=== PATIENT | male | born 1955 | race Caucasian/White ===

== ENCOUNTER → 2022-01-16 15:36 | Outpatient (BNVA) | payer MEDICARE, SELFPAY | PROVIDERS: Visit Provider Podiatrist Foot & Ankle Surgery | DX: M79.671 Pain in right foot (principal); M79.672 Pain in left foot; M21.42 Flat foot [pes planus] (acquired), left foot; M21.41 Flat foot [pes planus] (acquired), right foot | CPT/HCPCS: 73630 ==

== ENCOUNTER → 2022-11-27 10:06 | Outpatient (BNVA) | payer MEDICARE, SELFPAY | PROVIDERS: Visit Provider Podiatrist Foot & Ankle Surgery | DX: E11.21 Type 2 diabetes mellitus with diabetic nephropathy (principal); L84 Corns and callosities; M21.42 Flat foot [pes planus] (acquired), left foot; M21.41 Flat foot [pes planus] (acquired), right foot; M20.21 Hallux rigidus, right foot; M20.22 Hallux rigidus, left foot; Z79.84 Long term (current) use of oral hypoglycemic drugs | CPT/HCPCS: 99214 ==

== ENCOUNTER → 2024-01-28 08:47 | Outpatient (BNVA) | payer MEDICARE, SELFPAY | PROVIDERS: Visit Provider Podiatrist Foot & Ankle Surgery | DX: E11.21 Type 2 diabetes mellitus with diabetic nephropathy; M21.41 Flat foot [pes planus] (acquired), right foot; M21.42 Flat foot [pes planus] (acquired), left foot; M20.21 Hallux rigidus, right foot; M20.22 Hallux rigidus, left foot; Z79.84 Long term (current) use of oral hypoglycemic drugs | CPT/HCPCS: 99213 ==

== ENCOUNTER 2024-02-19 14:45 | Emergency (ER) | payer MEDICARE, SELFPAY ==
[2024-02-19 14:54] VITALS: BP 169/82; PULSE 95; RESP 18; TEMP 36.6; O2SAT 96; BMI 30.2
[2024-02-19 15:28] LABS: Basophils # 0.1 10^3/uL (0.0-0.1); Eosinophils # 0.2 10^3/uL (0.0-0.8); Eosinophils % 3.1 %; Hematocrit 44.3 % (37-53); Lymphocytes # 1.2 10^3/uL (0.8-4.8); Lymphocytes % 16.9 %; Mean Corpuscular HGB Conc 35.2 g/dL (30-55); Mean Corpuscular Hemoglobin 33.3 pg (27-33); Mean Corpuscular Volume 94.5 fl (82-101); Monocytes # 0.6 10^3/uL (0.2-0.9); Monocytes % 9.2 %; Neutrophils # 4.74 10^3/uL (1.8-7.7); Neutrophils % 68.8 %; Nucleated Red Blood Cells % 0 %; Platelet Count 265 10^3/cmm (157-399); Red Blood Count 4.69 10^6/uL (3.85-5.65); Red Cell Distribution Width 11.7 % (12.1-15.1); White Blood Count 6.88 10^3/uL (3.29-11.43)
--- NOTE | 2024-02-19 15:41 | ECG_ITS ---
[facility] Test Date: 2024-02-19 Pat Name: Oscar Ruiz Department: Room: Gender: Male Instructional Paraprofessional: : 1955 Requested By: Mikael Fletcher Order Number: [id number] Smith MD: Florencio Cuevas M.D. Measurements Intervals [place] Rate: 87 P: 78 MA: 204 QRS: -14 QRSD: 90 T: 119 QT: 346 QTc: 417 Interpretive Statements SINUS RHYTHM POSSIBLE LEFT ATRIAL ENLARGEMENT [-0.1mV P-WAVE IN V1/V2] POSSIBLE RIGHT VENTRICULAR CONDUCTION DELAY [RSR (QR) IN V1/V2] NONSPECIFIC T-WAVE ABNORMALITY No previous ECG available for comparison Electronically Signed On 02-19-2024 22:11:47 CDT by Florencio Cuevas M.D. [id number]
--- NOTE | 2024-02-19 15:46 | W.ED.GENADLT ---
HPI - General Adult General: Chief complaint: General Medical Stated complaint: Syncope Time Seen by Provider: 02/19/24 15:30 Source: patient Mode of arrival: ambulatory Limitations: no limitations History of Present Illness: 68-year-old male states that his blood pressure did spike today and felt lightheaded like he was going to pass out. He states he had no chest pain or headache he states he is felt improved currently. He denies any vomiting or fever. Associated symptoms: Deny chest pain, dyspnea, headache(s), nausea, rash, syncope or vomiting Review of Systems Const: Denies: fever(s), chills, body aches or change in appetite ENMT: Denies: throat pain or dental pain Card: Reports: pre-syncope; Denies: chest pain or syncope Resp: Denies: dyspnea GI: Denies: abdominal pain, nausea, vomiting or diarrhea Musc: Denies: neck pain or back pain Skin/Breast: Denies: rash Neuro: Denies: headache(s) PFSH ED PFSH: Social History Smoking and tobacco/nicotine status: never used tobacco/nicotine Second hand smoke exposure: No Alcohol intake: never Substance/Drug Use: never Physical Exam Const: COMMON NORMALS: no acute distress, patient oriented x3 and healthy appearing HENMT: COMMON NORMALS: normocephalic and atraumatic HEAD & SCALP: normocephalic and atraumatic Eye: COMMON NORMALS: Equal, round and reactive pupils present and EOMs intact bilaterally PUPIL: Yes Equal, round and reactive pupils present Neck/C-Spine: COMMON NORMALS: full ROM and supple Chest: COMMONS NORMALS: normal inspection of the chest and normal palpation of entire chest wall Resp: COMMON NORMALS: normal respiratory effort, No retractions, No use of accessory muscles and clear to auscultation bilaterally AUSCULTATION: clear to auscultation bilaterally Cardio: COMMON NORMALS: regular rate, regular rhythm and No murmurs present (Cardio) RATE: regular rate RHYTHM: regular rhythm GI: COMMON NORMALS: Normal to inspection, nondistended, normoactive bowel sounds present, Soft to palpation, non-tender and no masses PALPATION: Yes Soft to palpation Extremity: COMMON NORMALS: normal to inspection and full ROM Neuro: COMMON NORMALS: patient oriented x3, moves all extremities and no focal motor deficits Psych: COMMON NORMALS: mental status grossly normal, Normal thought process present and cooperative THOUGHT PROCESS: Normal thought process present Skin: COMMON NORMALS: no rashes or lesions noted and no wounds GENERAL SKIN EXAM: no rashes or lesions noted Course Vital Signs: Vital signs: Vital Signs Temperature 97.8 F 02/19/24 14:54 Pulse Rate 95 02/19/24 14:54 Respiratory Rate 18 02/19/24 14:54 Blood Pressure 169/82 02/19/24 14:54 Pulse Oximetry 96 02/19/24 14:54 [facility] - General Adult Medical Decision Making Patient presents here with a near syncopal event along with hypertension his blood pressure here is improved he had no symptoms here and feels much improved blood work EKG here is normal he had no chest pain or shortness of breath he is stable for discharge he is follow-up with PCP and return if worsening he understands agrees to plan. Medical Records I reviewed the patient's medical records. Lab Data I reviewed the patient's lab results. 02/19/24 15:15 02/19/24 15:15 Laboratory Results WBC 6.88 10^3/uL (3.29-11.43) 02/19/24 15:15 RBC 4.69 10^6/uL (3.85-5.65) 02/19/24 15:15 Hgb 15.60 g/dL (11.27-16.99) 02/19/24 15:15 Hct 44.3 % (37-53) 02/19/24 15:15 MCV 94.5 fl (82-101) 02/19/24 15:15 MCH 33.3 pg (27-33) H 02/19/24 15:15 MCHC 35.2 g/dL (30-55) 02/19/24 15:15 RDW 11.7 % (12.1-15.1) L 02/19/24 15:15 Plt Count 265 10^3/cmm (157-399) 02/19/24 15:15 MPV 10.0 fL (7.4-10.4) 02/19/24 15:15 Neut % (Auto) 68.8 % 02/19/24 15:15 Lymph % (Auto) 16.9 % 02/19/24 15:15 [place] % (Auto) 9.2 % 02/19/24 15:15 Eos % (Auto) 3.1 % 02/19/24 15:15 Baso % (Auto) 1.0 % 02/19/24 15:15 Neut # (Auto) 4.74 10^3/uL (1.8-7.7) 02/19/24 15:15 Lymph # (Auto) 1.2 10^3/uL (0.8-4.8) 02/19/24 15:15 [place] # (Auto) 0.6 10^3/uL (0.2-0.9) 02/19/24 15:15 Eos # (Auto) 0.2 10^3/uL (0.0-0.8) 02/19/24 15:15 Baso # (Auto) 0.1 10^3/uL (0.0-0.1) 02/19/24 15:15 Nucleated RBC % (auto) 0 % 02/19/24 15:15 Nucleated RBCs # 0.0 /100WBC 02/19/24 15:15 Sodium 142 mmol/L (136-145) 02/19/24 15:15 Potassium 4.0 mmol/L (3.5-5.1) 02/19/24 15:15 Chloride 106 mmol/L (98-107) 02/19/24 15:15 Carbon Dioxide 25 mmol/L (22-29) 02/19/24 15:15 Anion Gap 15.0 (5-19) 02/19/24 15:15 BUN 15 mg/dL (8-23) 02/19/24 15:15 Creatinine 1.1 mg/dL (0.7-1.2) 02/19/24 15:15 GFR Calculation 67.0 mL/min (90-130) L 02/19/24 15:15 Glucose 153 mg/dL (65-115) H 02/19/24 15:15 Calculated Osmolality 298 mOsm/kg (285-295) H 02/19/24 15:15 Calcium 8.7 mg/dL (8.5-10.5) 02/19/24 15:15 Total Bilirubin 0.5 mg/dL (0.15-1.2) 02/19/24 15:15 AST 21 U/L (0-40) 02/19/24 15:15 ALT 34 U/L (0-41) 02/19/24 15:15 Alkaline Phosphatase 99 U/L (40-130) 02/19/24 15:15 Total Protein 6.8 g/dL (6.6-8.7) 02/19/24 15:15 Albumin 4.4 g/dL (3.5-5.2) 02/19/24 15:15 Globulin 2.4 g/dL (1.3-4.6) 02/19/24 15:15 All radiology interpretation(s) finalized by discharge EKG Data EKG 1: I personally reviewed and interpreted this EKG as follows: EKG interpretation date: 02/19/24 EKG interpretation time: 15:41 Interpretation: nsr hr [address] or t wave abormalities qrs 90 qtc 390 Discharge Plan Discharge Patient Disposition: Home Clinical Impression: Near syncope, Hypertension Condition: Stable Prescriptions: No Action losartan 100 mg tablet 100 mg PO QPM paroxetine HCl 20 mg tablet 20 mg PO QPM metformin 500 mg tablet 1,000 mg PO QPM atorvastatin 10 mg tablet 10 mg PO QPM tamsulosin [Flomax] 0.4 mg capsule 0.4 mg PO QPM cholecalciferol (vitamin D3) 10 mcg (400 unit) capsule 10 mcg PO QPM (DME) Custom Molded Orthotics See Rx Instructions .Route .MEDSUPPLY Qty: 1 0RF Rx Instructions: As directed J P [facility] O Ozempic 1 mg/dose (4 mg/3 mL) pen injector See Rx Instructions .ROUTE .COMPLEX Rx Instructions: DIRECTED ON SATURDAY dexlansoprazole 60 mg capsule,biphase delayed releas 60 mg PO QPM (DME) Diabetic Shoes with 3 pairs of inserts See Rx Instructions .Route .MEDSUPPLY Qty: 1 0RF Rx Instructions: As directed by Discharge Orders: Discharge ED (Routine); Ordered 02/19/24 Ordered By: Mikael Fletcher Discharge Diet: Advance as tolerated Discharge Activity: Resume usual activity Patient Instructions: Hypertension (ED), Near Syncope (ED) Coding Level of Care Code ED Design Analyst for Jere Maldonado
[2024-02-19 15:51] LABS: Alanine Aminotransferase 34 U/L (0-41); Albumin Level 4.4 g/dL (3.5-5.2); Alkaline Phosphatase 99 U/L (40-130); Aspartate Amino Transferase 21 U/L (0-40); Blood Urea Nitrogen 15 mg/dL (8-23); Calcium 8.7 mg/dL (8.5-10.5); Carbon Dioxide 25 mmol/L (22-29); Chloride 106 mmol/L (98-107); Globulin 2.4 g/dL (1.3-4.6); Glucose 153 mg/dL (65-115); Osmolality Calculated 298 mOsm/kg (285-295); Sodium 142 mmol/L (136-145); Total Bilirubin 0.5 mg/dL (0.15-1.2); Total Protein 6.8 g/dL (6.6-8.7)
[2024-02-19] MEDS: sodium chloride 0.9% 500 ML 999 ML IV (15:53)
== END 2024-02-19 17:28 | disposition home or self-care (01) ==
PROVIDERS: Emergency Provider Emergency Medicine
DX: R55 Syncope and collapse (principal); I10 Essential (primary) hypertension
CPT/HCPCS: 36415; 80053; 85025; 93005; 96360; 99284; J7040

== ENCOUNTER → 2025-01-26 09:35 | Outpatient (BNVA) | payer MEDICARE, SELFPAY | PROVIDERS: Visit Provider Podiatrist Foot & Ankle Surgery | DX: E11.21 Type 2 diabetes mellitus with diabetic nephropathy (principal); M21.41 Flat foot [pes planus] (acquired), right foot; M21.42 Flat foot [pes planus] (acquired), left foot; M20.21 Hallux rigidus, right foot; M20.22 Hallux rigidus, left foot; Z79.84 Long term (current) use of oral hypoglycemic drugs | CPT/HCPCS: 99213 ==